=== PATIENT | male | born 1990 | race Caucasian/White ===

== ENCOUNTER 2021-02-22 18:33 | Emergency (ER) | payer OTHER ==
[~2021-02-22] VITALS: Ht 185.4 cm; Wt 86.2 kg
[2021-02-22 18:55] VITALS: BP 155/99
[2021-02-22 19:23] VITALS: BP 148/89
--- NOTE | 2021-02-22 19:24 | NUR ---
PATIENT BIB [facility]. PATIENT EXAMINED BY . PATIENT MEDICALLY CLEARED AND RELEASED IN CUSTODY IN STABLE CONDITION. ORIGINAL PRE-BOOK FORM GIVEN TO OFFICER JIAN.
== END 2021-02-22 19:24 ==
LOC: MED 18:33
DX: F17.210 Nicotine dependence, cigarettes, uncomplicated (principal); Z02.89 Encounter for other administrative examinations; V98.8XXA Other specified transport accidents, initial encounter; Y93.89 Activity, other specified; Y92.89 Other specified places as the place of occurrence of the external cause; Y99.8 Other external cause status
CPT/HCPCS: 99283